=== PATIENT | male | born 1990 | race Caucasian/White ===

== ENCOUNTER 2024-12-29 09:14 | Emergency (ER) | payer SELFPAY ==
[2024-12-29 09:23] VITALS: BP 159/109; PULSE 71; O2SAT 99
--- NOTE | 2024-12-29 09:28 | XR_ITS ---
PROCEDURE INFORMATION: Exam: XR Left Tibia and Fibula Exam date and time: 12/29/2024 9:41 AM Age: 34 years old Clinical indication: Pain; Lower leg; Left; Additional info: Non traumatic pain TECHNIQUE: Imaging protocol: Radiologic exam of the left tibia and fibula. Views: 2 views. COMPARISON: No relevant prior studies available. FINDINGS: Bones/joints: There is no evidence of acute fracture.There is no evidence of malalignment or dislocation. Soft tissues: Normal. IMPRESSION: There is no evidence of acute fracture.There is no evidence of malalignment or dislocation.
--- NOTE | 2024-12-29 09:28 | XR_ITS ---
PROCEDURE INFORMATION: Exam: XR Left Femur Exam date and time: 12/29/2024 9:40 AM Age: 34 years old Clinical indication: Pain; Thigh; Left; Additional info: Thigh pain TECHNIQUE: Imaging protocol: Radiologic exam of the left femur. Views: 2 views. COMPARISON: No relevant prior studies available. FINDINGS: Bones/joints: There is no evidence of acute fracture.There is no evidence of malalignment or dislocation. Soft tissues: Unremarkable. IMPRESSION: There is no evidence of acute fracture.There is no evidence of malalignment or dislocation.
[2024-12-29 09:30] VITALS: BP 150/102; BP 159/109; PULSE 68; PULSE 78; RESP 18; TEMP 36.6; O2SAT 97; O2SAT 99; BMI 25.7
--- NOTE | 2024-12-29 09:30 | HMH.EDGENADL ---
Discharge Plan Disposition Patient Disposition: Home, Self-Care Prescriptions Prescriptions: New cyclobenzaprine 10 mg tablet 10 mg PO TID PRN (Reason: muscle spasm) 5 Days Qty: 15 0RF naproxen 500 mg tablet 500 mg PO BID PRN (Reason: pain) 7 Days Qty: 14 0RF Referrals Follow up/Referrals: Eben Fuentes DO [Staff Physician, Orthopedics] - See instructions Deisi Arnold [Primary Care Provider, Medical] - See instructions Activity Restrictions/Add. Instructions Additional Instructions/Restrictions: No evidence of an obvious emergent medical condition today however there remains some diagnostic uncertainty as I could not definitively rule out a blood clot we have scheduled you an outpatient ultrasound also I recommend you follow-up with Dr. Fuentes as you may need an MRI of the affected extremity if no other diagnosis is made. At the moment working diagnosis is a musculoskeletal strain however there is been no obvious mechanism to explain that so therefore I would like you to continue to follow-up with diagnostic testing. Clinical Impressions Clinical Impression: Pain of left calf Print Language Print Language: Yemeni Discharge ED Provider: Deanna Rust General Adult HPI General Chief complaint: Extremity Problem,Nontraumatic Stated complaint: left leg pain Time Seen by Provider: 12/29/24 09:22 History of Present Illness HPI narrative: Patient is a 34-year-old male presenting today with left upper thigh and left calf pain. The calf pain is primarily what brought him to the emergency department today. The left upper thigh pain has been going on for several weeks but the calf pain has been worsening recently. This has caused so much pain that he is had to walk with crutches. Howard warm last night but did not take an objective temperature and thought he may have had a fever. No other respiratory symptoms or other viral or infectious symptoms. No swelling no redness bruising injuries etc. from a history standpoint. The difficulty with movement. The pain is worsened with walking and alleviated with rest. Related Data Previous Rx's ?Medication ?Instructions ?Recorded cyclobenzaprine 10 mg tablet 10 mg PO TID PRN muscle spasm 5 12/29/24 days #15 tabs naproxen 500 mg tablet 500 mg PO BID PRN pain 7 days #14 12/29/24 tabs Allergies Allergy/AdvReac Type Severity Reaction Status Date / Time No Known Allergies Allergy Verified 08/03/23 13:59 [facility] Disclaimer: The information contained in this section may have been updated after the patient was seen, as this information can be updated by other users. Social History (Updated 08/03/23 @ 15:00 by Josafat Jenkins MD) Smoking Status: Never smoker alcohol intake: never current occupational status: employed Travel in the last 8 weeks?: None Have you lived/traveled outside [place] in past 30 days?: No Contact w/someone who lives/traveled outside US past 30 days?: No Exposure to someone with infectious disease in past 14 days?: No Do you have a fever (greater than 100.4 F or 38 C)?: No Have you tested positive for COVID-19?: No Exposed to someone with COVID-19 in past 14 days?: No Do you have a sore throat?: No Do you have a cough?: No Do you have any weakness?: No Do you have any diarrhea?: No Are you experiencing any unusual bleeding?: No Do you have any muscle aches/pain?: No Do you have any abdominal pain?: No Are you experiencing loss of taste or smell?: No ROS Obtained: Yes All systems reviewed & no additional complaints except as documented Physical Exam General General appearance: alert Respiratory Respiratory exam: Present normal lung sounds bilaterally Cardiovascular Cardiovascular exam: Present regular rate Extremities Exam Extremities exam: Present other (Normal flexion extension and range of motion in all joints soft tissues are unremarkable no evidence of any soft tissue swelling erythema warmth fluctuance etc. pulses are normal distally as is motor and sensory exam) Neurological Exam Neurological exam: Present alert and oriented X3 Medical Decision Making Medical Records Screening: Per USPSTF and CDC recommendations, given the prevalence of disease in our region, it is our hospital?s policy to screen for HIV and viral Hepatitis for all patients aged 18 and over and those with ongoing risk factors. Arian Inquiry Pt receiving controlled substance: No Vital Signs: 12/29/24 09:23 12/29/24 09:30 12/29/24 09:30 Temperature 97.9 F 97.9 F Temperature Source Oral Pulse Rate 71 78 Pulse Rate [Right] 78 Respiratory Rate 18 18 Blood Pressure 159/109 H 159/109 H Blood Pressure [Right Arm] 159/109 H Blood Pressure Mean [Right Arm] 125 02 Sat by Pulse Oximetry 99 99 99 Oxygen Delivery Method Room Air 12/29/24 09:30 12/29/24 10:00 12/29/24 10:30 Temperature Temperature Source Pulse Rate 68 71 70 Pulse Rate [Right] Respiratory Rate Blood Pressure 150/102 H 131/82 126/81 Blood Pressure [Right Arm] Blood Pressure Mean [Right Arm] 02 Sat by Pulse Oximetry 97 98 98 Oxygen Delivery Method Room Air Room Air Room Air 12/29/24 11:00 Temperature Temperature Source Pulse Rate 69 Pulse Rate [Right] Respiratory Rate Blood Pressure 125/86 Blood Pressure [Right Arm] Blood Pressure Mean [Right Arm] 02 Sat by Pulse Oximetry 96 Oxygen Delivery Method Room Air Lab Data Lab results reviewed: Yes I reviewed the patient's lab results. Lab Results 12/29/24 09:45: WBC 7.0, RBC 5.00, Hgb 13.7 L, Hct 41.5 L, MCV 83.0, MCH 27.4, MCHC 33.0, RDW 13.5, Plt Count 226, MPV 10.0, Neut % (Auto) 60.4, Lymph % (Auto) 29.4, [place] % (Auto) 5.5, Eos % (Auto) 4.3, Baso % (Auto) 0.3, Neut # (Auto) 4.2, Lymph # (Auto) 2.1, [place] # (Auto) 0.4, Eos # (Auto) 0.3, Baso # (Auto) 0.0, ESR 1, D-Dimer 0.53 H, Sodium 135 L, Potassium 4.3, Chloride 105, Carbon Dioxide 25, Anion Gap 9.3, BUN 16, Creatinine 0.90, Estimated Creat Clear 150, Estimated GFR 97, Est GFR ( Amer) 118, Glucose 127 H, Calcium 8.4, Total Bilirubin 0.4, AST 31, ALT 31, Alkaline Phosphatase 65, Total Creatine Kinase 164, C-Reactive Protein < 0.3, Total Protein 6.8, Albumin 3.3 L, Globulin 3.5 H, Albumin/Globulin Ratio 0.9 L 12/29/24 09:45 12/29/24 09:45 Orders (Tests/Meds): ORDERS Category Date Time Status Femur XR left 2 views [XR femur LT 2V] Stat Exams 12/29/24 09:28 Completed Tibia/fibula XR left 2 views [XR tibia fibula LT 2V] Exams 12/29/24 09:28 Completed Stat CBC w/Auto Diff [Complete Blood Count Auto Diff] Stat Lab 12/29/24 09:45 Completed CK [Creatine Kinase] Stat Lab 12/29/24 09:45 Completed CMP [Comprehensive Metabolic Panel] Stat Lab 12/29/24 09:45 Completed CRP [C-Reactive Protein] Stat Lab 12/29/24 09:45 Completed D-Dimer Stat Lab 12/29/24 09:45 Completed ESR [Erythrocyte Sedimentation Rate] Stat Lab 12/29/24 09:45 Completed Medical Decision Narrative: 34-year-old with above history and physical presents today with left lower extremity nontraumatic pain. Pain is far to proportion to the findings that I am seeing on physical exam. Unlikely that this is a deep space infection but that remains on the possibility we will get blood work including inflammatory markers also will get a D-dimer to rule out a DVT which is also unlikely in this 34-year-old without any significant risk factors. Pulses are normal I do not suspect that this is a arterial insufficiency or abnormality. Also will obtain plain films to rule out any type of malignancy at [facility]. Reassessment 1133 x-rays performed which I personally interpreted shows no evidence of any fracture dislocation or malignancy. Labs essentially unremarkable aside from a very mildly elevated D-dimer still very low pretest probability but given the fact that there is some diagnostic uncertainty and he does not have a mechanism to explain musculoskeletal strain that I would like him to continue to pursue further workup to rule out a DVT so we have scheduled an outpatient ultrasound for him. I will not anticoagulate him at the moment given the low pretest probability of feel that would be more harmful than beneficial at the moment. Additionally he could have some soft tissue abnormality that we are not picking up on at the moment and I recommend that he get an outpatient evaluation by our orthopedic surgeon Dr. Fuentes if his symptoms continue given the diagnostic uncertainty which he understands. Patient was discharged in stable condition with symptomatic control. Critical Care Critical Care Time Critical Care Time: No
[2024-12-29 10:00] VITALS: BP 131/82; PULSE 71; O2SAT 98
[2024-12-29 10:24] LABS: Hematocrit 41.5 % (42.0-52.0); Hemoglobin 13.7 g/dL (14.1-18.0); Immature Granulocytes % 0.1 %; Mean Corpuscular HGB Conc 33.0 g/dL (31.8-35.4); Mean Corpuscular Hemoglobin 27.4 pg (27.0-31.2); Mean Corpuscular Volume 83.0 fl (80-94); Nucleated Red Blood Cells % 0 %; Platelet Count 226 K/mm3 (142-424); Red Blood Count 5.00 M/mm3 (4.60-6.20); Red Cell Distribution Width-SD 41.1 fL; White Blood Count 7.0 K/mm3 (4.8-10.8)
[2024-12-29 10:30] VITALS: BP 126/81; PULSE 70; O2SAT 98
[2024-12-29 10:34] LABS: Creatine Kinase 164 U/L (55-170)
[2024-12-29 10:37] LABS: Alanine Aminotransferase 31 U/L (12-78); Albumin Level 3.3 g/dl (3.5-5.0); Albumin/Globulin Ratio 0.9 (1.1-1.8); Alkaline Phosphatase 65 U/L (38-126); Anion Gap 9.3 mEq/L (5-15); Aspartate Amino Transferase 31 U/L (17-59); Bilirubin,Total 0.4 mg/dl (0.2-1.3); Blood Urea Nitrogen 16 mg/dl (9-20); Calcium 8.4 mg/dl (8.4-10.2); Carbon Dioxide 25 mmol/L (22.0-30.0); Chloride 105 mmol/L (98-107); Creatinine Clearance Estimated 150 mL/min (50-200); Creatinine,Serum 0.90 mg/dl (0.66-1.25); Estimated Glomerular Filt Rate 97 ml/min (>60); GFR (African American) 118 ML/MIN (>60); Globulin 3.5 g/dL (1.3-3.2); Glucose 127 mg/dl (74-100); Potassium 4.3 mmoL/L (3.5-5.1); Sodium 135 mmol/L (136-145); Total Protein,Serum 6.8 g/dl (6.3-8.2)
[2024-12-29 10:40] LABS: D-Dimer 0.53 ug/mL (0.0-0.5)
[2024-12-29 10:53] LABS: C-Reactive Protein < 0.3 mg/L (0-4)
[2024-12-29 11:00] VITALS: BP 125/86; PULSE 69; O2SAT 96
[2024-12-29 11:34] VITALS: BP 125/86; PULSE 68; RESP 18; TEMP 36.6; O2SAT 98
--- NOTE | 2024-12-31 08:24 | CARE MANAGER ---
Sent order for duplex to Violetta, financial counselor, so patient could get GFE as is self-pay.
== END 2024-12-29 11:41 | disposition home or self-care (01) ==
PROVIDERS: Emergency Provider Student in an Organized Health Care Education/Training Program; PCP Nurse Practitioner Family
DX: M79.662 Pain in left lower leg (principal)
CPT/HCPCS: 73552; 73590; 80053; 82550; 85025; 85378; 85651; 86140; 99283; 99284

== ENCOUNTER 2024-12-31 08:41 | Outpatient (CLI) | payer SELFPAY ==
--- NOTE | 2024-12-31 09:11 | CA_ITS ---
FINAL REPORT CLINICAL HISTORY: LLE PAIN and edema X SEVERAL DAYS FINDINGS: DUPLEX VENOUS SONOGRAPHY OF THE LEFT LOWER EXTREMITY Multiple transverse and longitudinal scans were performed of the femoropopliteal deep venous system, with augmentation and compression maneuvers. FINDINGS: Normal phasic flow was noted in the visualized deep venous system. No intraluminal increased echogenicity is noted to suggest thrombus. There is normal compression and augmentation of the venous structures. No abnormal venous collaterals are seen. IMPRESSION: No evidence of deep venous thrombosis of the left lower extremity. Reviewed, Interpreted and Dictated by Ayala Ortega MD Transcribed by Rosa Maria Chiang Authenticated and [facility]
== END 2024-12-31 23:59 | disposition home or self-care (01) ==
PROVIDERS: PCP Nurse Practitioner Family; Visit Provider Ophthalmology
DX: M79.662 Pain in left lower leg (principal); R60.9 Edema, unspecified
CPT/HCPCS: 93971